=== PATIENT | female | born 1965 | race Two or more races ===

== ENCOUNTER 2025-01-14 13:41 | Emergency (ER) | payer OTHER, SELFPAY ==
[2025-01-14 13:55] VITALS: BP 171/86; PULSE 95; RESP 20; TEMP 36.3; O2SAT 99
[2025-01-14] MEDS: TETANUS,DIPHTHERIA,AC PERTUSSIS ADULT (0.5 ML) BOOSTRIX IM (14:20)
--- NOTE | 2025-01-14 14:28 | ED.LOWEXIN ---
HPI - Extremity Injury (Lower) General Chief Complaint: Extremity Injury, Lower Stated Complaint: Laceration to Left Leg Time Seen by Provider: 01/14/25 14:15 Source: patient and RN notes reviewed Mode of arrival: ambulatory Limitations: no limitations History of Present Illness HPI Narrative: 59-year-old female presents to [facility] complaining of laceration to left lower leg. 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 Patient states laceration is small and superficial. Patient denies any numbness or tingling to her lower extremity, or any other injuries. Hemostasis achieved prior to arrival. Patient states she has a history of prediabetes. Patient clean the wound prior to arrival. Patient's tetanus is not up-to-date. Related Data Home Medications ?Medication ?Instructions ?Recorded ?Confirmed ?Last Taken ?Type amlodipine 5 mg tablet mg 01/14/25 Unknown History bupropion HCl 150 mg 24 hr tablet, mg PO 01/14/25 Unknown History extended release Allergies Allergy/AdvReac Type Severity Reaction Status Date / Time No Known Allergies Allergy Verified 01/14/25 14:19 Review of Systems Review of Systems: CONSTITUTIONAL: Denies fever, chills, or sweats. EYES: Denies visual changes, redness, or discharge. ENT: Denies rhinorrhea, congestion, sore throat, or otalgia. CARDIOVASCULAR: Denies chest pain, palpitations, or edema. RESPIRATORY: Denies cough or dyspnea. GASTROINTESTINAL: Denies abdominal pain, nausea, vomiting, or diarrhea. GENITOURINARY: Denies dysuria or hematuria. SKIN: Denies rash or itching. Positive for laceration. MUSCULOSKELETAL: Denies back pain, joint pain, or myalgia. NEUROLOGIC: Denies headache, numbness, or weakness. PSYCHIATRIC: Denies anxiety or depression. All other systems reviewed are negative, except as documented in HPI. PMFSH Comments At the time of my signature, I reviewed and agree with the nursing past medical, surgical, social, and family history. There is no relevant family history pertinent to the patient complaint. Exam Narrative: GENERAL: This is a well-nourished, well-developed adult, in no apparent distress. They are non ill-appearing, nontoxic appearing. HEAD: normocephalic, atraumatic. EYES: Sclera clear/white. Conjunctiva normal. Vision is grossly intact. Extraocular movements intact EARS: External ears normal, Hearing grossly intact. NOSE: External nose normal THROAT: Mucous membranes moist, NECK: Neck supple, CARDIOVASCULAR: Regular rate and rhythm RESPIRATORY: Respiratory rate normal, respiratory effort nonlabored, no respiratory distress SKIN: Left lower leg: There is a laceration to the lateral upper leg distal to the knee. Lacerations measuring 2.5 cm by 0.5 cm. Wound approximates well. Hemostasis achieved prior to arrival. No surrounding cellulitis, no area of fluctuance, no induration. Laceration is superficial. No bony tenderness to left lower leg. No Obvious deformity, swelling, bruising. Neurovascular status intact distal injury. NEURO: awake, alert, and oriented to person, place and time. There were no obvious focal neurologic abnormalities. EXTREMITIES: No joint tenderness, effusion, or edema noted. Course Course Emergency Course: Portions of this record may have been created with voice recognition software Level of Care: Express Care Visit Vital Signs Vital signs: Vital Signs Temperature 97.3 F L 01/14/25 13:55 Pulse Rate 95 01/14/25 13:55 Respiratory Rate 20 01/14/25 13:55 Blood Pressure 171/86 H 01/14/25 13:55 Pulse Oximetry 99 01/14/25 13:55 Oxygen Delivery Room Air 01/14/25 13:55 Temperature 97.3 F L 01/14/25 13:55 Pulse Rate 95 01/14/25 13:55 Respiratory Rate 20 01/14/25 13:55 Blood Pressure 171/86 H 01/14/25 13:55 Pulse Oximetry 99 01/14/25 13:55 Oxygen Delivery Room Air 01/14/25 13:55 Reviewed Procedures Laceration Laceration 1: Date: 01/14/25 Time: 14:32 Site: lower extremity Side (If applicable): left Size (cm): 2.5 Description: linear and clean Depth: simple, single layer Local Anesthetic: lidocaine 1% and with epi Amount of anesthesia used (mL): 3.5 Pre-repair: wound explored, irrigated extensively and minor debridement ====== Skin Level ====== Skin layer closed with: nylon Size (cm): 4-0 Number of sutures: 4 Technique: simple, interrupted ====== Subcutaneous Layer ====== ====== Muscle Layer ====== ====== Tendon Layer ====== Dressing: Nonstick bandage MDM - Extremity Injury (Lower) MDM Narrative Medical decision making narrative: Successful laceration repair, patient tolerated procedure well. Will prophylactically treat with cephalexin. Tetanus was updated today. There is no evidence of tendon or neuro vascular damage from laceration. Neurovascular status is intact distal to the injury. Discussed physical exam findings. Advised supportive measures and signs/symptoms to go to the ER. Pt is appropriate for outpt treatment and f/u. Differential Diagnosis Differential diagnosis: Likely other (Laceration, abrasion, tendon injury) Critical Care Time Critical Care Time Critical Care Time: No Discharge Plan Discharge Clinical Impression: Laceration of lower extremity Qualifiers: Encounter type: initial encounter Laterality: left Qualified Code(s): S81.812A - Laceration without foreign body, left lower leg, initial encounter Patient Disposition: Home Condition: Stable Instructions: Laceration (ED) Additional Instructions: Your tetanus is updated today. Your stitches will need to be removed in 8-10 days. You may return to Express Care or go to your PCP to have the removed. Wash the wound daily with mild soap and water. Keep it dry and covered. Do not soak the wound or scrub the wound vigorously. Avoid dirty water such as pools, legs, hot tubs, baths tubs, etc. until the wound has healed completely. Take the cephalexin as directed. Follow-up PCP in 3-5 days. If you developed worsening redness, swelling, numbness, tingling, pain, green or yellow discharge, or any other concerns please go to the ER immediately. Patient Language: [place]ian Prescriptions: New cephalexin 500 mg capsule 500 mg PO Q6H 7 Days Qty: 28 0RF No Action amlodipine 5 mg tablet bupropion HCl 150 mg tablet extended release 24 hr PO Follow-up/Referrals: UNKNOWN,DOCTOR [Primary Care Provider] - Time of Disposition: 15:29
[2025-01-14] MEDS: LIDO 1%/EPINEPHRINE 1:100,000 20 ML VIAL 4 ML INFILTRATE (15:17)
== END 2025-01-14 15:33 | disposition home or self-care (01) ==
DX: S81.812A Laceration without foreign body, left lower leg, initial encounter (principal); W26.8XXA Contact with other sharp object(s), not elsewhere classified, initial encounter; Z23 Encounter for immunization; I10 Essential (primary) hypertension
CPT/HCPCS: 12001; 90471; 90715; 99213; G0463; J2004